=== PATIENT | female | born 1955 | race Caucasian/White ===

== ENCOUNTER 2020-09-20 14:33 | Emergency (ER) | payer MEDICARE ==
[~2020-09-20] VITALS: Ht 157.5 cm; Wt 76.1 kg
--- NOTE | 2020-09-20 14:59 | REP ---
INDICATION: trauma. COMPARISON: None. TECHNIQUE: AP view FINDINGS: Consolidation present in the left lower lobe. This could be related to trauma and represent lung contusion or could represent pneumonia. The lungs are fully expanded. There is no evidence of pneumothorax. The heart is not enlarged. There is no failure. No displaced rib fractures are visible. IMPRESSION: Consolidation left lower lobe. <Electronically signed by Arturo Truong > 09/20/20 [id number]
[2020-09-20] MEDS ORDERED: fentaNYL 100 MCG/2 ML INJECTION (J3010) IV ONE ×2 (15:05→17:20)
[2020-09-20] MEDS ORDERED: NS 1,000 ML IV ONE (15:05)
[2020-09-20 15:10] LABS: BASO # 0.1 10^3/uL (0.0-0.2); BASO % 0.6 % (0.0-1.0); EOS # 0.2 10^3/uL (0.0-0.5); EOS % 1.9 % (0.0-3.0); HEMATOCRIT 41.1 % (36.0-47.0); HEMOGLOBIN 13.9 g/dl (12.0-15.5); LYMPH # 3.5 10^3/uL (1.5-5.0); LYMPH % 35.6 % (24.0-44.0); MEAN CORPUSCULAR HEMOGLOBIN 30.6 pg (27.0-33.0); MEAN CORPUSCULAR HGB CONC 33.8 g/dl (32.0-36.5); MEAN CORPUSCULAR VOLUME 90.5 fl (80.0-96.0); MONO # 0.4 10^3/uL (0.0-0.8); MONO % 3.7 % (2.0-8.0); NEUTROPHILS # 5.6 10^3/uL (1.5-8.5); NEUTROPHILS % 56.8 % (36.0-66.0); PLATELET COUNT, AUTOMATED 314 10^3/uL (150-450); RED BLOOD COUNT 4.54 10^6/uL (4.00-5.40); WHITE BLOOD COUNT 9.9 10^3/uL (4.0-10.0)
[2020-09-20 15:23] LABS: INR 0.98; PROTHROMBIN TIME 13.4 SECONDS (12.7-14.5)
[2020-09-20 15:24] LABS: PARTIAL THROMBOPLASTIN TIME 23.4 SECONDS (25.9-37.0)
--- NOTE | 2020-09-20 15:47 | REP ---
INDICATION: trauma. COMPARISON: None. TECHNIQUE: Three views FINDINGS: Comminuted fracture of the distal radius and avulsion of the ulnar styloid. Dorsal displacement of the distal radial fragment. IMPRESSION: Comminuted fracture of the distal radius with dorsal displacement of distal fragment. Avulsion fracture ulnar styloid. <Electronically signed by Arturo Truong > 09/20/20 [id number]
--- NOTE | 2020-09-20 15:49 | REP ---
INDICATION: trauma. COMPARISON: None. TECHNIQUE: Three views FINDINGS: Normal bone texture / alignment. No fracture or dislocation. Soft tissues unremarkable. IMPRESSION: Normal exam <Electronically signed by Arturo Truong > 09/20/20 [id number]
--- NOTE | 2020-09-20 15:50 | REP ---
INDICATION: trauma. COMPARISON: None. TECHNIQUE: Three views FINDINGS: Comminuted fracture distal radius with dorsal displacement of the distal fragment. Avulsion fracture ulnar styloid. No other fractures. IMPRESSION: Collies fracture wrist <Electronically signed by Arturo Truong > 09/20/20 [id number]
--- NOTE | 2020-09-20 15:52 | REP ---
INDICATION: trauma. COMPARISON: None. TECHNIQUE: Three views FINDINGS: No fracture or dislocation the bone texture is normal. Consolidation noted in the left lower lobe of the lung IMPRESSION: Negative radiographs of the left shoulder. <Electronically signed by Arturo Truong > 09/20/20 [id number]
[2020-09-20 15:58] LABS: ALBUMIN 3.5 GM/DL (3.2-5.2); ALT/SGPT 35 U/L (12-78); BILIRUBIN,DIRECT < 0.1 MG/DL (0.0-0.2); BILIRUBIN,TOTAL 0.3 MG/DL (0.2-1.0); BLOOD UREA NITROGEN 13 MG/DL (7-18); CALCIUM LEVEL 8.5 MG/DL (8.8-10.2); CARBON DIOXIDE LEVEL 21 MEQ/L (21-32); CHLORIDE LEVEL 111 MEQ/L (98-107); CK-MB VALUE MASS 7.6 NG/ML (<3.6); CPK CREATINE PHOSPHOKINASE 325 U/L (26-192); CREATININE FOR GFR 0.74 MG/DL (0.55-1.30); GLOMERULAR FILTRATION RATE > 60.0 (>45); GLUCOSE, FASTING 126 MG/DL (70-100); MB/CK RELATIVE INDEX 2.34 (< OR =4); POTASSIUM SERUM 4.2 MEQ/L (3.5-5.1); SODIUM LEVEL 142 MEQ/L (136-145); TOTAL PROTEIN 7.1 GM/DL (6.4-8.2); TROPONIN I < 0.02 NG/ML (< 0.10)
[2020-09-20] MEDS ORDERED: ISOVUE-370 76% 100ML VIAL As Ordered ONE (16:18)
--- NOTE | 2020-09-20 16:47 | REP ---
INDICATION: trauma. COMPARISON: None. TECHNIQUE: UNENHANCED SCANS FINDINGS: NO DISPLACEMENT OF MIDLINE STRUCTURES. THIRD AND LATERAL VENTRICLES SHOW NORMAL SIZE AND CONFIGURATION. CEREBRAL HEMISPHERES SHOW NORMAL CONFIGURATION AND ATTENUATION. NO EVIDENCE OF HEMORRHAGE, MASS EFFECT OR EDEMA. NO EXTRA-AXIAL FLUID COLLECTION. CALVARIUM INTACT. IMPRESSION: NEGATIVE BRAIN CT. <Electronically signed by Arturo Truong > 09/20/20 [id number]
--- NOTE | 2020-09-20 16:54 | REP ---
INDICATION: trauma. COMPARISON: None. TECHNIQUE: Scans were obtained during contrast administration. FINDINGS: The liver shows normal size and attenuation. No evidence of mass or biliary tract dilatation. The gallbladder sludge filled sense of gallstone. The pancreas and spleen show normal size and attenuation. The aorta shows normal caliber. Adrenal glands are not enlarged. Kidneys show normal size configuration. There is no evidence of hydronephrosis, mass, cyst or calculus. No free fluid in the abdomen or pelvis. The large and small bowel are unremarkable. Uterus and ovaries show no abnormality. IMPRESSION: Negative CT abdomen and pelvis. <Electronically signed by Arturo Truong > 09/20/20 [id number]
--- NOTE | 2020-09-20 17:05 | REP ---
INDICATION: trauma. COMPARISON: None. TECHNIQUE: Scanned during contrast administration. FINDINGS: Consolidation in both lower lungs. More pronounced on the left side. Blebs in both lungs. Emphysema. No pneumothorax. No hilar or mediastinal adenopathy. Several nodules in the thyroid. Adrenal glands not enlarged. Heart not enlarged. No failure. IMPRESSION: Consolidation in both lower lungs left greater than right bed several small thyroid nodules. Emphysema. <Electronically signed by Arturo Truong > 09/20/20 2372
--- NOTE | 2020-09-20 17:11 | REP ---
INDICATION: trauma. COMPARISON: None. TECHNIQUE: Axial scans the sagittal and coronal reconstructions. FINDINGS: Cervical spondylosis with narrowing C3-4, C4-5, C5-6 C6-7 disc space and uncovertebral/facet hypertrophy. No evidence of fracture or dislocation PA alignment normal. IMPRESSION: Spondylosis. No fracture or dislocation. <Electronically signed by Arturo Truong > 09/20/20 [id number]
--- NOTE | 2020-09-20 17:13 | REP ---
INDICATION: trauma. COMPARISON: None. TECHNIQUE: Axial scans with sagittal and coronal reconstructions. FINDINGS: Minimal scoliosis convexity to the left. Marked narrowing L2-3 and L4-5 disc spaces with gas in these discs. No fracture. Normal alignment. Facet arthropathy L2 2-3, L3-4 and L4-5 levels. Neural canal shows normal dimensions. Consolidation noted in both lower lungs. IMPRESSION: Spondylosis. Scoliosis. No fracture. <Electronically signed by Arturo Truong > 09/20/20 [id number]
--- NOTE | 2020-09-20 17:14 | REP ---
INDICATION: trauma. COMPARISON: None. TECHNIQUE: Unenhanced scans. FINDINGS: Minimal scoliosis custody to the right. No fracture. Small osteophytes originate from the vertebral bodies. Multilevel spondylosis. No fracture or dislocation. Neural canal shows normal dimensions. Mild facet hypertrophy at multiple levels. IMPRESSION: No fracture or dislocation. <Electronically signed by Arturo Truong > 09/20/20 [id number]
[2020-09-20] MEDS ORDERED: LIDOCAINE 1% MDV 20ML VIAL SC ONE (17:15)
[2020-09-20 18:15] VITALS: BP 126/69
--- NOTE | 2020-09-20 19:08 | REP ---
INDICATION: wrist reduction. COMPARISON: None. FINDINGS: Fluoroscopic guidance was provided for wrist reduction. IMPRESSION: Fluoroscopic guidance was provided for wrist reduction <Electronically signed by Arturo Truong > 09/20/20 2373
--- NOTE | 2020-09-21 12:43 | ED PDOC ---
Post-Departure Follow-Up pt referred to [facility]. ct chest faxed there for fu. pt left ama. Rogelio Reich MD Sep 21, 2020 12:43
--- NOTE | 2020-09-22 10:05 | CR ---
CONSULTATION DATE: 09/20/2020 REASON FOR CONSULTATION: Bilateral wrist pain, left wrist deformity. CHIEF COMPLAINT: Bilateral wrist pain, left worse than right. HISTORY OF PRESENT ILLNESS: The patient is a 64-year-old female who was on a ladder about 8 feet high and then fell off and onto her bilateral outstretched arms. She had immediate onset of pain but fell mostly with her left arm but a little bit with her right as well. She was diagnosed in the emergency department with bilateral distal radius fractures, right nondisplaced left dorsally displaced and apex volar angulation. Orthopedics was consulted for further evaluation and management, otherwise no areas of pain, no other complaints. PAST MEDICAL HISTORY AND SURGICAL HISTORY: Noncontributory. MEDICATIONS: See med reconciliation. ALLERGIES: PENICILLINS AND CEPHALEXIN. REVIEW OF SYSTEMS: A 10 point review of systems was conducted, all negative except for what is in the HPI. SOCIAL HISTORY: Denies any alcohol or tobacco use. Lives at home with her . PHYSICAL EXAMINATION: GENERAL: Well-developed, well-nourished, in no acute distress. NEURO: Alert and oriented x4. PSYCH: Normal mood and affect. CARDIAC: Regular rate and rhythm. RESPIRATORY: Nonlabored breathing. Equal chest rise and fall. ABDOMEN: Nontender. SKIN: Intact, no ecchymosis, swelling or breaks in the skin. MUSCULOSKELETAL: Focused exam of bilateral wrists demonstrates right side minimal swelling, minimal tenderness to palpation, nearly full range of motion of the wrist. Sensation intact to light touch in the radial, ulnar, median nerve distribution. Motor intact in ____, radial and ulnar nerves. She has brisk capillary refill in all the digits, 2+ radial pulse in that hand as well. Focused exam of the left wrist demonstrates obvious deformity but no breaks in the skin, it is a closed injury. The patient has tenderness to palpation over the dorsal wrist and range of motion of the fingers and wrist is limited secondary to pain but she is neurovascularly intact distally otherwise. IMAGING: I reviewed the radiographs of the above wrists. The right side demonstrates a nondisplaced distal radius fracture and the left wrist demonstrates a dorsally displaced apex, volar angulated distal radius fracture, appears to be extra-articular in nature. ASSESSMENT: A 64-year-old female with bilateral distal radius fractures, left worse than right. I had a long discussion with the patient about the nature of the condition and treatment options. I recommended a hematoma block and closed reduction and sugar tong splint application to the left side. First the patient signed a consent form and a simple sugar tong splint placed on the right side by the emergency department. The patient did sign the informed consent for the hematoma block which was performed in sterile condition. She was put in traction with the finger traps and this was held for approximately 10 minutes. For the last three or four minutes, 10 lbs of traction was placed and then under fluoroscopic guidance, a closed reduction was performed through manipulation. Manipulation was successful and the reduction was stable and then a sugar tong splint was applied in standard fashion. The patient tolerated this well without any overt pain and she had much improvement in her pain range of motion of her fingers afterwards. PLAN: The patient will follow up with orthopedics for further evaluation, then completely transition to a cast. She might be a candidate for a left side open reduction and internal fixation given that her right side is broken as well and this would likely allow her to get back to daily use of her left hand sooner than if she is in a cast for 6-8 weeks on both sides. This will be discussed further at her followup.
== END 2020-09-20 19:25 | disposition left against medical advice (07) ==
LOC: EDBD 14:33 → M ED 14:33
DX: S52.532A Colles' fracture of left radius, initial encounter for closed fracture (principal); S52.612A Displaced fracture of left ulna styloid process, initial encounter for closed fracture; S52.591A Other fractures of lower end of right radius, initial encounter for closed fracture; W11.XXXA Fall on and from ladder, initial encounter; R91.8 Other nonspecific abnormal finding of lung field; J43.9 Emphysema, unspecified; Z88.0 Allergy status to penicillin; Z88.1 Allergy status to other antibiotic agents; Y92.9 Unspecified place or not applicable; Y93.H2 Activity, gardening and landscaping; Y99.9 Unspecified external cause status
CPT/HCPCS: 25565; 70450; 71045; 71260; 72125; 72128; 72131; 73030; 73080; 73090; 73110; 74177; 76000; 80048; 80076; 82550; 82553; 84484; 85025; 85610; 85730; 86850; 86900; 86901; 93041; 94760; 99285; J3010; Q9967

== ENCOUNTER → 2020-10-05 | Outpatient (CLI) | payer MEDICARE ==
--- NOTE | 2020-10-05 11:04 | REP ---
INDICATION: ENCOUNTER FOR OTHER PREPROCEDURAL EXAMINATION- LABS/EKG 1ST COMPARISON: 09/20/2020 TECHNIQUE: PA and lateral. FINDINGS: The mediastinum and cardiac silhouette are normal. The lung roper demonstrate improved aeration with minimal residual linear opacities in the left lower lung zone. IMPRESSION: Minimal residual left lower lobe fibroatelectatic changes <Electronically signed by Enrique Cowart > 10/05/20 1100
[2020-10-05 11:21] LABS: HEMATOCRIT 38.3 % (36.0-47.0); MEAN CORPUSCULAR HEMOGLOBIN 30.7 pg (27.0-33.0); MEAN CORPUSCULAR HGB CONC 33.9 g/dl (32.0-36.5); MEAN CORPUSCULAR VOLUME 90.3 fl (80.0-96.0); PLATELET COUNT, AUTOMATED 365 10^3/uL (150-450); RED BLOOD COUNT 4.24 10^6/uL (4.00-5.40); WHITE BLOOD COUNT 6.2 10^3/uL (4.0-10.0)
[2020-10-05 11:53] LABS: ALBUMIN 3.6 GM/DL (3.2-5.2); ALT/SGPT 26 U/L (12-78); BILIRUBIN,TOTAL 0.6 MG/DL (0.2-1.0); BLOOD UREA NITROGEN 12 MG/DL (7-18); CALCIUM LEVEL 9.2 MG/DL (8.8-10.2); CARBON DIOXIDE LEVEL 27 MEQ/L (21-32); CHLORIDE LEVEL 109 MEQ/L (98-107); CREATININE FOR GFR 0.69 MG/DL (0.55-1.30); GLOMERULAR FILTRATION RATE > 60.0 (>45); GLUCOSE, FASTING 95 MG/DL (70-100); POTASSIUM SERUM 4.2 MEQ/L (3.5-5.1); SODIUM LEVEL 140 MEQ/L (136-145); TOTAL PROTEIN 6.9 GM/DL (6.4-8.2)
--- NOTE | 2020-10-05 20:56 | ECGEPIP ---
[facility] Test Date: 2020-10-05 Pat Name: MEGAN MCKEON Department: Room: - Gender: Female [employer]: DAMARIS : 1955 Requested By: Agustin Virgen Order Number: [id number] Reading MD: Tawanda Dickson Measurements Intervals [place] Rate: 59 P: 67 DC: 174 QRS: 68 QRSD: 86 T: 62 QT: 414 QTc: 409 Interpretive Statements Sinus bradycardia Normal sinus rhythm Comparison tracing not on file Electronically Signed on 10-05-2020 20:56:47 EDT by Tawanda Dickson
== END ==
LOC: M LAB 10:18
PROVIDERS: ATTEND Orthopaedic Surgery
DX: Z01.818 Encounter for other preprocedural examination (principal); S52.592D Other fractures of lower end of left radius, subsequent encounter for closed fracture with routine healing

== ENCOUNTER → 2021-03-17 | Outpatient (CLI) | payer MEDICARE ==
[~2021-03-17] MED LIST: D31000TA2 PO; FLAX10002 PO; VITA-243 PO; VITATAB73 PO
== END ==
LOC: M WUC 10:34
PROVIDERS: ATTEND Nurse Practitioner Family
DX: Z01.811 Encounter for preprocedural respiratory examination (principal)

== ENCOUNTER → 2021-03-18 | Outpatient (CLI) | payer MEDICARE ==
[2021-03-18 13:24] LABS: APPEARANCE, URINE CLOUDY (CLEAR); BACTERIA, URINE AUTO NEGATIVE (NEGATIVE); BILIRUBIN, URINE AUTO NEGATIVE (NEGATIVE); BLOOD, URINE BLOOD NEGATIVE (NEGATIVE); COLOR, URINE AMBER (YELLOW); GLUCOSE, URINE (UA) AUTO NEGATIVE (NEGATIVE); KETONE, URINE AUTO NEGATIVE (NEGATIVE); LEUKOCYTE ESTERASE, URINE AUTO NEGATIVE (NEGATIVE); MUCUS, URINE SMALL (NEGATIVE); NITRITE, URINE AUTO NEGATIVE (NEGATIVE); PROTEIN, URINE AUTO NEGATIVE (NEGATIVE); RBC, URINE AUTO 9 /HPF (0-3); SPECIFIC GRAVITY URINE AUTO 1.015 (1.002-1.035); SQUAMOUS EPITHELIAL CELL UR AU 2 /HPF (0-6); UROBILINOGEN, URINE AUTO 0.2 mg/dL (0.0-2.0); WBC, URINE AUTO 1 /HPF (0-3)
== END ==
LOC: M WUC 10:00
PROVIDERS: ATTEND Nurse Practitioner Family
DX: R31.9 Hematuria, unspecified (principal)

== ENCOUNTER → 2021-03-22 | Outpatient (CLI) | payer MEDICARE | LOC: M LABSMTC 09:04 | PROVIDERS: ATTEND Anesthesiology | DX: Z01.812 Encounter for preprocedural laboratory examination (principal); Z20.822 Contact with and (suspected) exposure to COVID-19 ==

== ENCOUNTER → 2021-03-26 | Day surgery (SDC) | payer MEDICARE ==
[~2021-03-26] VITALS: Ht 157.5 cm; Wt 71.2 kg
[~2021-03-26] MED LIST changes: +ACETAMINOPHEN 1000MG 100ML IV BTL (OFIRMEV) (J0131 PER 10MG) As Ordered ONE; +KETOROLAC 60MG 2ML VIAL As Ordered ONE; +LIDOCAINE 2% 100MG/5ML SDV (FOR ANES.) As Ordered ONE; +LIDOCAINE W/EPINEPHRINE 1% 20ML VIAL As Ordered ONE; +LR 1,000 ML IV ONE; +LR 1,000 ML IV SCH; +METOCLOPRAMIDE INJ 10MG/2ML VIAL (J2765 PER 1) As Ordered ONE; +MIDAZOLAM INJ 2MG/2ML VIAL (J2250 PER 1MG) As Ordered ONE; +ONDANSETRON 4MG/2ML VIAL As Ordered ONE; +ONDANSETRON 4MG/2ML VIAL IV PRN; +ROCURONIUM BROMIDE 50 MG/5 ML VIAL As Ordered ONE; +SUGAMMADEX SODIUM 500 MG/5 ML VIAL (BRIDION) As Ordered ONE; +dexameTHASONE 4 MG/ML 1ML VIAL (J1100 PER 1MG) As Ordered ONE; +ePHEDrine SULFATE 25 MG/5 ML(5MG/ML) SYRINGE As Ordered ONE; +fentaNYL 100 MCG/2 ML INJECTION IV PRN; +fentaNYL 250 MCG/5 ML INJECTION As Ordered ONE; +oxyCODONE 5MG TAB PO PRN; +propofoL 200 MG/20 ML VIAL As Ordered ONE
[2021-03-26 07:31] LABS: HEMATOCRIT 44.8 % (36.0-47.0); HEMOGLOBIN 14.9 g/dl (12.0-15.5); MEAN CORPUSCULAR HEMOGLOBIN 30.1 pg (27.0-33.0); MEAN CORPUSCULAR HGB CONC 33.3 g/dl (32.0-36.5); MEAN CORPUSCULAR VOLUME 90.5 fl (80.0-96.0); PLATELET COUNT, AUTOMATED 278 10^3/uL (150-450); RED BLOOD COUNT 4.95 10^6/uL (4.00-5.40); WHITE BLOOD COUNT 7.6 10^3/uL (4.0-10.0)
[2021-03-26 08:08] LABS: BLOOD UREA NITROGEN 13 MG/DL (7-18); CALCIUM LEVEL 8.6 MG/DL (8.8-10.2); CARBON DIOXIDE LEVEL 20 MEQ/L (21-32); CHLORIDE LEVEL 111 MEQ/L (98-107); CREATININE FOR GFR 0.68 MG/DL (0.55-1.30); GLOMERULAR FILTRATION RATE > 60.0 (>45); GLUCOSE, FASTING 88 MG/DL (70-100); POTASSIUM SERUM 6.9 MEQ/L (3.5-5.1); SODIUM LEVEL 136 MEQ/L (136-145)
[2021-03-26 12:20] VITALS: BP 136/62
== END | disposition home or self-care (01) ==
LOC: M SDC 06:45
PROVIDERS: ATTEND Surgery
DX: K80.10 Calculus of gallbladder with chronic cholecystitis without obstruction (principal); K21.9 Gastro-esophageal reflux disease without esophagitis; F17.218 Nicotine dependence, cigarettes, with other nicotine-induced disorders; Z88.0 Allergy status to penicillin; Z88.1 Allergy status to other antibiotic agents
CPT/HCPCS: 36415; 47562; 80048; 84132; 85027; 88304; J0131; J1100; J1885; J2250; J2405; J2765; J3010; S2900

== ENCOUNTER → 2021-06-15 | Outpatient (CLI) | payer MEDICARE ==
[~2021-06-15] MED LIST changes: -ACETAMINOPHEN 1000MG 100ML IV BTL (OFIRMEV) (J0131 PER 10MG) As Ordered ONE; -D31000TA2 PO; -KETOROLAC 60MG 2ML VIAL As Ordered ONE; -LIDOCAINE 2% 100MG/5ML SDV (FOR ANES.) As Ordered ONE; -LIDOCAINE W/EPINEPHRINE 1% 20ML VIAL As Ordered ONE; -LR 1,000 ML IV ONE; -LR 1,000 ML IV SCH; -METOCLOPRAMIDE INJ 10MG/2ML VIAL (J2765 PER 1) As Ordered ONE; -MIDAZOLAM INJ 2MG/2ML VIAL (J2250 PER 1MG) As Ordered ONE; -ONDANSETRON 4MG/2ML VIAL As Ordered ONE; -ONDANSETRON 4MG/2ML VIAL IV PRN; -ROCURONIUM BROMIDE 50 MG/5 ML VIAL As Ordered ONE; -SUGAMMADEX SODIUM 500 MG/5 ML VIAL (BRIDION) As Ordered ONE; +VITA100093 PO; -dexameTHASONE 4 MG/ML 1ML VIAL (J1100 PER 1MG) As Ordered ONE; -ePHEDrine SULFATE 25 MG/5 ML(5MG/ML) SYRINGE As Ordered ONE; -fentaNYL 100 MCG/2 ML INJECTION IV PRN; -fentaNYL 250 MCG/5 ML INJECTION As Ordered ONE; -oxyCODONE 5MG TAB PO PRN; -propofoL 200 MG/20 ML VIAL As Ordered ONE
[2021-06-15 10:21] LABS: APPEARANCE, URINE CLEAR (CLEAR); BACTERIA, URINE AUTO 1+ (NEGATIVE); BILIRUBIN, URINE AUTO NEGATIVE (NEGATIVE); BLOOD, URINE BLOOD 2+ (NEGATIVE); COLOR, URINE YELLOW (YELLOW); GLUCOSE, URINE (UA) AUTO NEGATIVE (NEGATIVE); KETONE, URINE AUTO NEGATIVE (NEGATIVE); LEUKOCYTE ESTERASE, URINE AUTO 1+ (NEGATIVE); NITRITE, URINE AUTO NEGATIVE (NEGATIVE); PROTEIN, URINE AUTO NEGATIVE (NEGATIVE); RBC, URINE AUTO 9 /HPF (0-3); SPECIFIC GRAVITY URINE AUTO 1.014 (1.002-1.035); SQUAMOUS EPITHELIAL CELL UR AU 3 /HPF (0-6); UROBILINOGEN, URINE AUTO 0.2 mg/dL (0.0-2.0); WBC, URINE AUTO 2 /HPF (0-3)
[2021-06-15 10:22] LABS: BASO # 0.1 10^3/uL (0.0-0.2); BASO % 0.8 % (0.0-1.0); EOS # 0.2 10^3/uL (0.0-0.5); EOS % 2.6 % (0.0-3.0); HEMATOCRIT 43.7 % (36.0-47.0); HEMOGLOBIN 14.4 g/dl (12.0-15.5); LYMPH # 1.8 10^3/uL (1.5-5.0); LYMPH % 29.2 % (24.0-44.0); MEAN CORPUSCULAR HEMOGLOBIN 30.4 pg (27.0-33.0); MEAN CORPUSCULAR VOLUME 92.2 fl (80.0-96.0); MONO # 0.4 10^3/uL (0.0-0.8); MONO % 6.2 % (2.0-8.0); NEUTROPHILS # 3.7 10^3/uL (1.5-8.5); PLATELET COUNT, AUTOMATED 273 10^3/uL (150-450); RED BLOOD COUNT 4.74 10^6/uL (4.00-5.40); WHITE BLOOD COUNT 6.1 10^3/uL (4.0-10.0)
[2021-06-15 11:17] LABS: ALBUMIN 3.6 GM/DL (3.2-5.2); ALT/SGPT 28 U/L (12-78); BILIRUBIN,TOTAL 0.4 MG/DL (0.2-1.0); BLOOD UREA NITROGEN 14 MG/DL (7-18); CALCIUM LEVEL 8.9 MG/DL (8.8-10.2); CARBON DIOXIDE LEVEL 29 MEQ/L (21-32); CHLORIDE LEVEL 108 MEQ/L (98-107); CHOLESTEROL LEVEL 183 MG/DL (<200); CHOLESTEROL RISK RATIO 2.951 (<5); CREATININE FOR GFR 0.68 MG/DL (0.55-1.30); GLOMERULAR FILTRATION RATE > 60.0 (>45); GLUCOSE, FASTING 81 MG/DL (70-100); HDL CHOLESTEROL 62 MG/DL (>40); LDL CHOLESTEROL 107 MG/DL (<100); NON-HDL-C 121 MG/DL; POTASSIUM SERUM 4.4 MEQ/L (3.5-5.1); SODIUM LEVEL 139 MEQ/L (136-145); TOTAL PROTEIN 7.1 GM/DL (6.4-8.2); TRIGLYCERIDES LEVEL 71 MG/DL (<150)
[2021-06-15 11:40] LABS: HEMOGLOBIN A1c 5.5 %
== END ==
LOC: M WUC 07:59
PROVIDERS: ATTEND Nurse Practitioner Family
DX: Z01.818 Encounter for other preprocedural examination (principal); Z13.29 Encounter for screening for other suspected endocrine disorder; Z13.220 Encounter for screening for lipoid disorders; Z79.899 Other long term (current) drug therapy

== ENCOUNTER → 2021-07-22 | Outpatient (CLI) | payer MEDICARE | LOC: M WUC 09:36 | PROVIDERS: ATTEND Nurse Practitioner Family | DX: M25.572 Pain in left ankle and joints of left foot (principal); M77.32 Calcaneal spur, left foot ==

== ENCOUNTER → 2021-08-23 | Outpatient (CLI) | payer MEDICARE ==
[2021-08-23 11:44] LABS: APPEARANCE, URINE CLEAR (CLEAR); BACTERIA, URINE AUTO NEGATIVE (NEGATIVE); BILIRUBIN, URINE AUTO NEGATIVE (NEGATIVE); BLOOD, URINE BLOOD 2+ (NEGATIVE); COLOR, URINE YELLOW (YELLOW); GLUCOSE, URINE (UA) AUTO NEGATIVE (NEGATIVE); KETONE, URINE AUTO NEGATIVE (NEGATIVE); LEUKOCYTE ESTERASE, URINE AUTO 1+ (NEGATIVE); MUCUS, URINE SMALL (NEGATIVE); NITRITE, URINE AUTO NEGATIVE (NEGATIVE); PROTEIN, URINE AUTO NEGATIVE (NEGATIVE); RBC, URINE AUTO 6 /HPF (0-3); SPECIFIC GRAVITY URINE AUTO 1.006 (1.002-1.035); SQUAMOUS EPITHELIAL CELL UR AU 1 /HPF (0-6); TRANSITIONAL EPITHELIAL AUTO <1 /HPF; UROBILINOGEN, URINE AUTO 0.2 mg/dL (0.0-2.0); WBC, URINE AUTO 1 /HPF (0-3)
== END ==
LOC: M WUC 08:21
PROVIDERS: ATTEND Nurse Practitioner Family
DX: R31.9 Hematuria, unspecified (principal)

== ENCOUNTER → 2022-06-08 | Outpatient (CLI) | payer MEDICARE ==
[2022-06-08 13:06] LABS: BASO # 0.1 10^3/uL (0.0-0.2); BASO % 0.9 % (0.0-1.0); EOS # 0.2 10^3/uL (0.0-0.5); EOS % 2.3 % (0.0-3.0); HEMATOCRIT 44.6 % (36.0-47.0); HEMOGLOBIN 14.4 g/dl (12.0-15.5); LYMPH # 1.7 10^3/uL (1.5-5.0); LYMPH % 23.8 % (24.0-44.0); MEAN CORPUSCULAR HEMOGLOBIN 29.6 pg (27.0-33.0); MEAN CORPUSCULAR HGB CONC 32.3 g/dl (32.0-36.5); MEAN CORPUSCULAR VOLUME 91.6 fl (80.0-96.0); MONO # 0.4 10^3/uL (0.0-0.8); NEUTROPHILS # 4.6 10^3/uL (1.5-8.5); NEUTROPHILS % 66.1 % (36.0-66.0); PLATELET COUNT, AUTOMATED 266 10^3/uL (150-450); RED BLOOD COUNT 4.87 10^6/uL (4.00-5.40)
[2022-06-08 13:32] LABS: ALBUMIN 3.8 G/DL (3.2-5.2); ALKALINE PHOSPHATASE 101 U/L (46-116); ALT/SGPT 21 U/L (7.0-40); AST/SGOT 17 U/L (<34); BILIRUBIN,TOTAL 0.5 MG/DL (0.3-1.2); BLOOD UREA NITROGEN 11 MG/DL (9-23); CALCIUM LEVEL 8.9 MG/DL (8.3-10.6); CARBON DIOXIDE LEVEL 28 MMOL/L (20-31); CHLORIDE LEVEL 107 MMOL/L (98-107); CHOLESTEROL LEVEL 166 MG/DL (<200); CHOLESTEROL RISK RATIO 3.38 (<5); CREATININE FOR GFR 0.76 MG/DL (0.55-1.30); GLOMERULAR FILTRATION RATE > 60.0 (>45); GLUCOSE, FASTING 83 MG/DL (74-106); SODIUM LEVEL 140 MMOL/L (136-145); TRIGLYCERIDES LEVEL 100 MG/DL (<150)
[2022-06-08 13:34] LABS: THYROID STIMULATING HORMONE 1.348 uIU/ML (0.55-4.78); TOTAL 25(OH) VITAMIN D 34.8 NG/ML (20.0-100.0)
[2022-06-08 13:38] LABS: HEMOGLOBIN A1c 5.5 % (4.0-6.0)
== END ==
LOC: M WUC 09:01
PROVIDERS: ATTEND Nurse Practitioner Family
DX: Z00.01 Encounter for general adult medical examination with abnormal findings (principal); Z13.220 Encounter for screening for lipoid disorders; Z13.29 Encounter for screening for other suspected endocrine disorder; E55.9 Vitamin D deficiency, unspecified